=== PATIENT | male | born 1960 | race Caucasian/White ===

== ENCOUNTER 2022-05-29 19:00 | Emergency (ER) | payer OTHER, SELFPAY ==
[2022-05-29 19:15] VITALS: BP 133/68; PULSE 52; RESP 20; TEMP 36.7; O2SAT 97
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
[2022-05-29] MEDS: SILVER SULFADIAZINE 1% CREAM 400 GM 1 APPLIC TOP (19:46)
[2022-05-29] MEDS: BACITRACIN OINT 0.9 GM PCKT 1 APPLIC TOP (19:47)
== END 2022-05-29 19:47 | disposition home or self-care (01) ==
PROVIDERS: Emergency Provider Registered Nurse; Family Provider Family Medicine
DX: T21.22XA Burn of second degree of abdominal wall, initial encounter (principal); X10.2XXA Contact with fats and cooking oils, initial encounter
CPT/HCPCS: 99282